=== PATIENT | male | born 2000 | race Hispanic/Latino ===

== ENCOUNTER 2024-12-24 13:54 | Emergency (ER) | payer SELFPAY ==
[~2024-12-24] VITALS: Ht 170.2 cm; Wt 59.0 kg
[2024-12-24 14:23] VITALS: PULSE 88; RESP 18; TEMP 97.4; O2SAT 99
[2024-12-24] MEDS ORDERED: AMOX TR-K CLV1 EAC2 PO (14:37)
[2024-12-24] MEDS ORDERED: OFLOXACIN5 ML OT (14:37)
== END 2024-12-24 14:59 | disposition home or self-care (01) ==
LOC: ER 13:59
DX: H60.92 Unspecified otitis externa, left ear (principal)
CPT/HCPCS: 99282